=== PATIENT | male | born 1955 | race Caucasian/White ===

== ENCOUNTER 2018-03-31 17:32 | Inpatient (IN) | payer MEDICARE, BC ==
[2018-03-31 18:41] LABS: #Eosinphils 0.4 thou/uL (0.0-0.7); #Lymphocytes 0.9 thou/uL (1.20-3.40); #Monocytes 0.7 thou/uL (0.11-0.59); #Neutrophils 4.6 thou/uL (1.40-6.50); %Basophils 0.7 % (0.0-1.0); %Eosinophils 5.4 % (0.0-10.0); %Lymphocytes 14.1 % (21.0-51.0); %Monocytes 9.9 % (0.0-10.0); %Neutrophils 69.9 % (42.0-75.0); Hemoglobin 7.2 g/dL (14.0-18.0); Mean Corpuscular HGB CONC 32.5 g/dL (32.0-36.0); Mean Corpuscular Hemoglobin 28.4 pg (27.0-31.0); Mean Corpuscular Volume 87.6 fL (78.0-98.0); Mean Platelet Volume 6.9 fL (7.4-10.4); Platelet Count 190 thou/uL (130-400); RBC Distribution Width 14.1 % (11.5-14.5); Red Blood Cell (RBC) Count 2.52 mill/uL (4.70-6.10); White Blood Cell (WBC) Count 6.5 thou/uL (4.8-10.8)
[2018-03-31 18:58] LABS: ALT (SGPT) 25 U/L (8-55); AST (SGOT) 20 U/L (5-34); Albumin 3.3 g/dL (3.4-4.8); Alkaline Phosphatase 119 U/L (40-150); Anion Gap 17 mmol/L (10-20); BUN (Urea Nitrogen) 47 mg/dL (8.4-25.7); Bilirubin, Total 0.5 mg/dL (0.2-1.2); Calc. Creatinine Clearance 0 mL/min (70-130); Calcium 8.6 mg/dL (7.8-10.44); Carbon Dioxide 25 mmol/L (23-31); Chloride 98 mmol/L (98-107); Estimated GFR-MDRD 12; Globulin 3.5 g/dL (2.4-3.5); Glucose 171 mg/dL (80-115); Potassium 4.1 mmol/L (3.5-5.1); Protein, Total 6.8 g/dL (5.8-8.1); Sodium 136 mmol/L (136-145)
--- NOTE | 2018-03-31 19:14 | RAD ---
RIGHT GREAT TOE RADIOGRAPHS THREE VIEWS: 03/31/18 PROVIDED CLINICAL HISTORY: Great toe infection. FINDINGS: There is evidence for a lytic process involving the great toe distal phalanx distally. There is surro unding soft tissue swelling. Vascular calcifications are seen. The great toe is held in flexion at th e IP joint. The MTP joint space appears preserved. IMPRESSION: Lytic changes involving the great toe distal phalanx compatible with osteomyelitis in the setting of infection. POS: LULU
[2018-03-31] MEDS ORDERED: CEFAZOLIN 1 GM VIAL ONE ×2 (19:52→20:20)
[2018-03-31] MEDS ORDERED: traMADol HCl 50 MG TAB PO PRN (21:08)
[2018-03-31] MEDS ORDERED: Ondansetron ODT 4 MG TAB PO PRN (21:08)
[2018-03-31] MEDS ORDERED: Acetaminophen 325 MG TAB PO PRN (21:08)
--- NOTE | 2018-03-31 21:35 | PDOC.FPRHP ---
- History of Present Illness Chief Complaint: Osteomyelytis History of Present Illness: This is a 62 yo male with a pmh of CAD s/p cabg 2009, DM2, HTN, ESRD on HD, CHF , and parkinsons who presents to the ED from his admitting manager's office. He states that his admitting manager, Dr. Brown, wanted him admitted due to his osteomyelitis confirmed by xray in his right first toe. He states that this wound resulted from him dropping an object on his toe. He states that they have been treating this wound for a few weeks. He states that he is having mild pain with is toe currently. He denies fever or chills. He does reports increased swelling and redness over his toe and distal foot. Pt has had the toes on his left foot amputated. The ED consult Dr. Alejo, pt's supervisor vendor quality ED Course: vanc, ancef - Allergies/Adverse Reactions Allergies Allergy/AdvReac Type Severity Reaction Status Date / Time acetaminophen [From Percocet] Allergy Verified 03/31/18 22:10 codeine Allergy Verified 03/31/18 22:10 oxycodone Allergy Verified 03/31/18 22:10 - Home Medications Medication Instructions Recorded Confirmed Type ALPRAZolam [Xanax] 1 mg PO DAILY 03/31/18 03/31/18 History Amiodarone [Cordarone] 200 mg PO DAILY 03/31/18 03/31/18 History Aspirin [Adult Aspirin] 81 mg PO DAILY 03/31/18 03/31/18 History Atorvastatin Calcium 80 mg PO DAILY 03/31/18 03/31/18 History Carvedilol 25 mg PO BID 03/31/18 03/31/18 History Furosemide [Lasix] 80 mg PO Q2DAYS 03/31/18 03/31/18 History Isosorbide Dinitrate 30 mg PO DAILY 03/31/18 03/31/18 History glipiZIDE [Glipizide] 10 mg PO QPM-WM 03/31/18 03/31/18 History - History PMHx: DM2, ESRD on HD MWF, CAD s/p CABG, CHF unknown type, parkinsons, Neck fracture in 2016, anxiety PSHx: CABG, Left HD fistula, pacemaker FHx: noncontributory Social: Denies 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 denies: rhinorrhea Respiratory: denies: cough, congestion, shortness of breath Cardiovascular: denies: chest pain, palpitation Gastrointestinal: reports: constipation (occasionally). denies: nausea, vomiting, diarrhea Skin: reports: other (see HPI) Musculoskeletal: reports: pain (neck pain) Neurological: denies: numbness, syncope Psychological: reports: anxiety. denies: depression - Vital signs BP: 168/82 HR: 72 RR: 18 Tmax: 97.9 Pox: 95% on ra Wt: 86 kg - Physical Exam Constitutional: NAD, awake, alert and oriented, well developed HEENT: normocephalic and atraumatic, PERRLA, EOMI, MMM Neck: trachea midline, no JVD Chest: no-tender to palpation Heart: RRR, normal S1/S2, pulses present, other (2+ pitting edema to midshin bilaterally) Lungs: CTAB, no respiratory distress, good air movement Abdomen: soft, non-tender, bowel sounds present, no masses/distention Musculoskeletal: normal structure, ROM grossly normal Neurological: CN II-XII intact Skin: other (2x3 cm lesion on the plantar surface of right big toe. Erythematous with spread to distal midfoot.) Heme/Lymphatic: no unusual bruising or bleeding Psychiatric: normal mood and affect, good judgment and insight FMR H&P: Results - Labs Result Diagrams: 03/31/18 18:31 03/31/18 18:31 Lab results: WBC 6.5 thou/uL (4.8-10.8) 03/31/18 18:31 Hgb 7.2 g/dL (14.0-18.0) L 03/31/18 18:31 Hct 22.0 % (42.0-52.0) L 03/31/18 18:31 MCV 87.6 fL (78.0-98.0) 03/31/18 18:31 Plt Count 190 thou/uL (130-400) 03/31/18 18:31 Neutrophils % 69.9 % (42.0-75.0) 03/31/18 18:31 Sodium 136 mmol/L (136-145) 03/31/18 18:31 Potassium 4.1 mmol/L (3.5-5.1) 03/31/18 18:31 Chloride 98 mmol/L (98-107) 03/31/18 18:31 Carbon Dioxide 25 mmol/L (23-31) 03/31/18 18:31 BUN 47 mg/dL (8.4-25.7) H 03/31/18 18:31 Creatinine 5.03 mg/dL (0.7-1.3) H 03/31/18 18:31 Glucose 171 mg/dL (80-115) H 03/31/18 18:31 Lactic Acid 0.8 mmol/L (0.5-2.2) 03/31/18 18:31 Calcium 8.6 mg/dL (7.8-10.44) 03/31/18 18:31 Total Bilirubin 0.5 mg/dL (0.2-1.2) 03/31/18 18:31 AST 20 U/L (5-34) 03/31/18 18:31 ALT 25 U/L (8-55) 03/31/18 18:31 Alkaline Phosphatase 119 U/L (40-150) 03/31/18 18:31 B-Natriuretic Peptide 2119.3 pg/mL (0-100) H 03/31/18 18:31 Serum Total Protein 6.8 g/dL (5.8-8.1) 03/31/18 18:31 Albumin 3.3 g/dL (3.4-4.8) L 03/31/18 18:31 - Radiology Interpretation Other Status: report reviewed by me (2View xray rt toes, lytic changes involving the great toe distal phalanx compatible with osteomyelitis in the setting of infection) FMR H&P: A/P - Problem List (1) Osteomyelitis of toe of right foot Current Visit: Yes Status: Acute Code(s): M86.9 - OSTEOMYELITIS, UNSPECIFIED (2) ESRD on dialysis Current Visit: Yes Status: Acute Code(s): N18.6 - END STAGE RENAL DISEASE; Z99.2 - DEPENDENCE ON RENAL DIALYSIS (3) Diabetes mellitus type 2 in nonobese Current Visit: Yes Status: Acute Code(s): E11.9 - TYPE 2 DIABETES MELLITUS WITHOUT COMPLICATIONS (4) CAD (coronary artery disease) Current Visit: Yes Status: Acute Code(s): I25.10 - ATHSCL HEART DISEASE OF [place] CORONARY ARTERY W/O ANG PCTRS (5) HTN (hypertension) Current Visit: Yes Status: Acute Code(s): I10 - ESSENTIAL (PRIMARY) HYPERTENSION (6) Parkinson disease Current Visit: Yes Status: Acute Code(s): G20 - PARKINSON'S DISEASE (7) CHF (congestive heart failure) Current Visit: Yes Status: Acute Code(s): I50.9 - HEART FAILURE, UNSPECIFIED - Plan This is a 62 yo male with a pmh of CAD s/p cabg 2009, DM2, HTN, ESRD on HD, CHF , and parkinsons Osteomyelitis -Admit to medical -Consult podiatry and wound care in the morning -Vanc and ancef (03/31) ESRD -Dr. Alejo consulted from ED -Vanc given in ED, will continue in dialysis Normocytic anemia -Hgb 7.2, consider transfusing depending on plan and trend DM2 -Continue home meds -ACHS accuchecks, SSI HTN -Continue home meds CAD -Continue home meds CHF -Continue home meds parkinsons -continue home meds anxiety -Continue home meds Code: Full Prophylaxis: heparin Family: Girlfriend at bedside, plan discussed with her Disposition: Pending tx plan and podiatry recommendations FMR H&P: Upper Level - Pertinent history 62 yo male was sent to ER from his admitting manager with concerns for osteomyelitis of his right 1st toe. He has had amputation of his left foot toes. Reports he has been having issues with is toe and they have been trying to manage it with wound care. Denies CP, SOB, cough, N/V/abdominal pain. He reports he recently moved to from the [facility] for a work opportunity with his girlfriend. Patient is also on HD MWF. Information Technology Officer is Dr. Alejo. History is also significant for 4v CABG around 2009, HTN, CHF, DMII. In ER patient received vancomycin and cefazolin. - Pertinent findings Rt 1st toe xray: lytic changes of distal phalanx consistent with osteomyelitis WBC: 6.5 Neutrophils: 69.9 H/H: 7.2/22.0 MCV: 87.6 Plt: 190 Cr: 5.03 Glucose: 171 BNP: 2119 GEN: NAD, soft neck brace around neck CARD: RRR, 2/6 systolic murmur PULM: CTAB EXT: left foot transmetatarsal amputation; right distal toe has approx. 5cm x 3cm open lesion with pink borders Grade 1 NEURO: endorse sensation in feet and is able to determine position of toes on right foot - Plan Date/Time: 03/31/182133 IBenito DO, have evaluated this patient and agree with findings/plan as outlined by r d internship resident. Pertinent changes/additions are listed here. #suspected osteomyelitis -consult podiatry team in AM -continue with cefazolin -wound care -PT/OT #ESRD on HD -Dr. Alejo consulted from the ER -plan to dialyze today as he is MWF #DMII -continue home medications #CHF -get records from previous providers and consider ECHO based on elevated BNP #normocytic anemia -unsure of his baseline, but significantly low -asymptomatic -as he likely will be going back for surgery, will likely need to transfuse #HTN -continue home medications Addendum - Attending - Attending Attestation Date/Time: 03/31/182135 I personally evaluated the patient and discussed the management with Dr. Ross /Khushi. I agree with the History, Examination, Assessment and Plan documented above with any addition or exceptions noted below. Patient here with 4 weeks of worsening infection in R great toe that began after injury to the digit. Has history of PVD and CAD, as well as ESRD on HD. Has history of L foot digit amputations in the past for infection. Has been seeing Podiatry in outpatient setting for abx therapy with no improvement in his toe. Sent by admitting manager today for parenteral abx. XR obtained by ER shows osteomyelitis and the toe is gangrenous. He will be admitted for IV abx with Vanc and Ancef, though consider switching to Zosyn for possible Pseudomonas coverage. Will consult wound care and Podiatry in the AM for likely debridement verus amputation. No current systemic evidence of infection. Has likely chronic anemia 2/2 ESRD but if the need for surgery arises, he may need transfusion as he is near 7 in setting of CAD. Other labs consistent with ESRD status.
[2018-03-31 21:47] VITALS: BMI 27.2
[2018-03-31] MEDS ORDERED: Furosemide 80 MG TAB PO SCH (23:45)
[2018-04-01] MEDS ORDERED: ALPRAZolam 1 MG TAB PO SCH ×2 (00:45→09:00)
--- NOTE | 2018-04-01 06:05 | PDOC.FM ---
- Subjective Subjective: NAEO. Patient states he slept well last night. Denies any fever/chills, N/V or significant foot pain. Says it feels ok as long as he is not walking on it. - Objective MAR Reviewed: Yes Vital Signs & Weight: Vital Signs (12 hours) Temp Pulse Resp BP Pulse Ox 04/01/18 04:01 98.0 F 63 18 169/74 H 95 04/01/18 00:27 98.1 F 62 16 151/71 H 97 03/31/18 21:29 97.9 F 65 16 181/77 H 92 L Weight Weight 86.183 kg Result Diagrams: 04/03/18 05:58 04/03/18 05:58 Phys Exam - Physical Examination Constitutional: NAD HEENT: moist MMs, sclera anicteric Neck: supple, full ROM Respiratory: no wheezing, no rales, no rhonchi, clear to auscultation bilateral Cardiovascular: RRR, no significant murmur Musculoskeletal: edema present (in right LE) Neurological: non-focal, moves all 4 limbs Psychiatric: normal affect, A&O x 3 Deviation from normal: ~3cm diameter eschar over tip of base of R great toe w/ 2nd smaller sore on -: medial aspect of toe; surrounding erythema and edema present up to midshin Dx/Plan (1) CAD (coronary artery disease) Code(s): I25.10 - ATHSCL HEART DISEASE OF [place] CORONARY ARTERY W/O ANG PCTRS Status: Acute (2) Diabetes mellitus type 2 in nonobese Code(s): E11.9 - TYPE 2 DIABETES MELLITUS WITHOUT COMPLICATIONS Status: Acute (3) ESRD on dialysis Code(s): N18.6 - END STAGE RENAL DISEASE; Z99.2 - DEPENDENCE ON RENAL DIALYSIS Status: Acute (4) HTN (hypertension) Code(s): I10 - ESSENTIAL (PRIMARY) HYPERTENSION Status: Acute (5) Osteomyelitis of toe of right foot Code(s): M86.9 - OSTEOMYELITIS, UNSPECIFIED Status: Acute (6) Parkinson disease Code(s): G20 - PARKINSON'S DISEASE Status: Acute - Plan Plan: This is a 62 yo male with a pmh significant for CAD s/p 4v cabg, DM2, & ESRD on HD who was instructed by his bakery sales clerk to go to the hospital after being diagnosed with osteomyelitis in his right great toe on x-ray. Osteomyelitis - Will consult podiatry and wound care today. Appreciate recs. - Will keep NPO until patient can be seen by podiatry in anticipation of possible surgery today. - Will continue IV Vanc and ancef as well. ESRD - Aware, patient missed HD yesterday but Dr. Alejo, the patient's movie producer, was consulted from ED. Appreciate recs. - Patient on a MWF HD schedule but missed yesterday as he came to the hospital instead. Will likely need HD today but will defer to Dr. Alejo for this. Normocytic anemia - Hgb 7.2 on admission. Patient asymptomatic and HD stable. Repeat CBC pending for today. - Will transfuse PRN especially if patient is to undergo surgery. DM2 - Aware, will continue home meds. - ACHS accuchecks, SSI HTN -Continue home meds CAD -Continue home meds CHF -Continue home meds Parkinsons -Continue home meds Anxiety -Continue home meds Code: Full DVT Prophylaxis: heparin Abx: Vancomycin and Ancef IVFs: none Disposition: Pending tx plan and podiatry recommendations. Addendum - Attending - Attending Attestation Date/Time: 04/01/182155 I personally evaluated the patient and discussed the management with Dr. Hill and Dr. Puri I agree with the History, Examination, Assessment and Plan documented above with any addition or exceptions noted below. 62 yo male with multiple medical conditions admitted for failed outpatient treatment of osteomyelitis HD#1 Patient doing well overnight. No complications. Tolerating IV antibiotics well. Podiatry to evaluate later today. 1. osteomyelitis: Failed outpatient treatment. Rule out PVD. ABIs pending. Consider imaging as needed. Per podiatry would like CV surg consult. Adjust home meds as indicated. Chacha
[2018-04-01 09:00] LABS: #Basophils 0.1 thou/uL (0.0-0.2); #Eosinphils 0.3 thou/uL (0.0-0.7); #Lymphocytes 0.8 thou/uL (1.20-3.40); #Monocytes 0.6 thou/uL (0.11-0.59); #Neutrophils 4.7 thou/uL (1.40-6.50); %Eosinophils 5.1 % (0.0-10.0); %Lymphocytes 11.7 % (21.0-51.0); %Monocytes 9.2 % (0.0-10.0); %Neutrophils 73.1 % (42.0-75.0); Hemoglobin 7.1 g/dL (14.0-18.0); Mean Corpuscular HGB CONC 32.4 g/dL (32.0-36.0); Mean Corpuscular Hemoglobin 28.8 pg (27.0-31.0); Mean Platelet Volume 6.8 fL (7.4-10.4); Platelet Count 201 thou/uL (130-400); Red Blood Cell (RBC) Count 2.46 mill/uL (4.70-6.10); White Blood Cell (WBC) Count 6.4 thou/uL (4.8-10.8)
[2018-04-01] MEDS ORDERED: HOLD VANCOMYCIN FOR LEVEL >20 FS SCH (09:00)
[2018-04-01] MEDS ORDERED: Vancomycin HCl 1.25 GM in Sodium Chloride 0.9% 250 ML 250 ML IVPB SCH (09:00)
[2018-04-01] MEDS ORDERED: Vancomycin HCl 1 GM in Premix Bag 1 BAG IVPB SCH (09:00)
[2018-04-01] MEDS ORDERED: Vancomycin HCl 500 MG in Sodium Chloride 0.9% 100 ML IVPB SCH (09:00)
[2018-04-01] MEDS ORDERED: Vancomycin HCl 750 MG in Sodium Chloride 0.9% 250 ML 250 ML IVPB SCH (09:00)
[2018-04-01 09:12] LABS: Vancomycin, Random 11.3 ug/mL (See Comment)
[2018-04-01 09:14] LABS: Anion Gap 15 mmol/L (10-20); BUN (Urea Nitrogen) 48 mg/dL (8.4-25.7); Calc. Creatinine Clearance 18 mL/min (70-130); Calcium 8.6 mg/dL (7.8-10.44); Carbon Dioxide 29 mmol/L (23-31); Chloride 100 mmol/L (98-107); Estimated GFR-MDRD 11; Glucose 115 mg/dL (80-115); Potassium 3.8 mmol/L (3.5-5.1); Sodium 140 mmol/L (136-145)
[2018-04-01] MEDS ORDERED: Epoetin (ESRD) 20,000 UNITS/ML SC SCH (09:30)
[2018-04-01] MEDS: Amiodarone 200 MG TAB PO SCH ×2 (09:40→19:27)
[2018-04-01] MEDS: Heparin 5,000 UNITS/ML VIAL SC SCH ×3 (09:55→21:34)
[2018-04-01] MEDS ORDERED: Epoetin (ESRD) 10,000 UNITS/ML VIAL SC SCH (10:00)
--- NOTE | 2018-04-01 12:40 | CON ---
DATE OF CONSULTATION: HISTORY OF PRESENT ILLNESS: Mr. Cosme is a 62-year-old white male with known history of ESRD from diabetic nephropathy and admitted due to a foot infection. He had an x-ray of right first toe, which suggested osteomyelitis. He has received IV Ancef and IV vancomycin. We are now being consulted for his maintenance hemodialysis. He missed his dialysis yesterday and for this reason, I have scheduled him for his regular 3-1/2-hour hemodialysis today. REVIEW OF SYSTEMS: Positive for right foot pain. No nausea. No vomiting. Positive for chronic tremors. No diarrhea. No constipation. No productive cough. No fever or chills. No dysuria. No shortness of breath. No chest pain. No headache. Positive for occasional joint pains. HOME MEDICATIONS: Include the following; 1. Xanax 1 mg daily. 2. Amiodarone 200 mg p.o. b.i.d. 3. Aspirin 81 mg tablet daily. 4. Atorvastatin 80 mg at bedtime. 5. Carvedilol 25 mg p.o. b.i.d. 6. Furosemide 80 mg every 2 days. 7. Isordil 30 mg once a day. 8. Glipizide 10 mg q.p.m. PAST MEDICAL HISTORY: 1. ESRD from diabetic nephropathy. 2. Parkinson disease. 3. Coronary artery disease. 4. DJD. 5. Type 2 diabetes mellitus. 6. Hyperlipidemia. 7. Peripheral vascular disease ? PAST SURGICAL HISTORY: 1. Status post AV fistula placement. 2. Status post cuffed dialysis catheter placement. 3. Status post colonoscopy. 4. Status post cardiac cath. 5. Status post CABG. 6. Status post right knee replacement. 7. Status post cervical neck surgery. ALLERGIES: PERCOCET, CODEINE, AND OXYCODONE. TRAUMA: Status post neck injury. IMMUNIZATION: Up-to-date. HOSPITALIZATIONS: Please see past medical history. FAMILY HISTORY: No family history of ESRD. SOCIAL HISTORY: The patient is originally from [place], but lives in [place]. He has a live-in partner. No children. 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 Education, some college courses. No history of smoking. Occasional alcohol. No IV drug abuse. No status post blood transfusion. PHYSICAL EXAMINATION: VITAL SIGNS: Blood pressure 134/69, heart rate 59, respiratory rate 20, temperature 97.8, and pulse ox 92%. GENERAL: Awake, alert, sitting comfortable, not in distress. SKIN: Adequate turgor. HEENT: He has pinkish conjunctivae. Anicteric sclerae. NECK: No neck mass. No carotid bruits. No JVD. CHEST: No deformities. LUNGS: Clear breath sounds. No wheezing. No crackles. HEART: Normal sinus rhythm. No murmur. No gallops. No rubs. ABDOMEN: Globular, soft, and nontender. No masses. EXTREMITIES: No edema. No deformities. He does have a wound infection on the right great toe. LABORATORY DATA: Laboratories show white count 6.4 and hemoglobin 7.1. Sodium 140, potassium 2.8, chloride 100, carbon dioxide 29, BUN 48, creatinine 5.15, and calcium 8.6. BNP 2119. DIAGNOSTIC DATA: X-rays of the toe, lytic changes involving the great toe distal phalanx compatible with osteomyelitis - right. ASSESSMENT AND PLAN: 1. Anemia. Continue Epogen at 10,000 units subcu q.week. We will give 1 unit packed RBC with dialysis today. 2. End-stage renal disease, stable. We will continue current hemodialysis regimen. Review of Kt/V suggest he has adequately dialyzed with current dialysis regimen. 3. Right toe infection - osteomyelitis - continue IV antibiotics. 4. Agree with current management. Job ID: [id number]
[2018-04-01] MEDS: Isosorbide Dinitrate 20 MG TAB PO SCH (19:25)
[2018-04-01] MEDS: Carvedilol 25 MG TAB PO SCH ×2 (19:26→21:34)
[2018-04-01] MEDS: Aspirin 81 mg Enteric Coated Tablet PO SCH (19:27)
[2018-04-01] MEDS: Furosemide 80 MG TAB PO SCH (19:28)
[2018-04-01] MEDS: glipiZIDE 10 MG TAB PO SCH (19:31)
--- NOTE | 2018-04-01 21:24 | CON ---
DATE OF CONSULTATION: 04/01/2018 CHIEF COMPLAINT: Right great toe pain. HISTORY OF PRESENT ILLNESS: The patient is a 62-year-old diabetic man, who recently has moved to the [facility]. Earlier this year, he had gangrenous changes develop in his left great toe and as he describes it after amputation of that toe, the adjoining toe became ischemic and then the next and ultimately he underwent a transmetatarsal amputation that healed without incident. In the course of his move here, he dropped something heavy on his right foot and he has developed an ulceration on the tip of his right great toe that is about 1 x 2 cm or perhaps even larger. X-rays suggest osteomyelitis, although I suppose this could represent a crush injury from having dropped something on the toe. He was seen by local respiratory therapy assistant, who has been treating him with antibiotics, but opted to refer him to the hospital for possible vascular evaluation prior to committing to amputation or other treatment modalities. PAST MEDICAL HISTORY: Significant for end-stage renal disease, diabetes, coronary artery disease, status post coronary artery bypass grafting, and presumed peripheral vascular disease. HOME MEDICATIONS: 1. Xanax. 2. Amiodarone. 3. Baby aspirin. 4. Lipitor. 5. Coreg. 6. Lasix. 7. Isordil. 8. Glipizide. ALLERGIES: THE PATIENT REPORTS DYSPHORIA AND NAUSEA WITH CODEINE AND CODEINE-LIKE NARCOTICS. HE IS ABLE TO TAKE TRAMADOL WITH REASONABLE RELIEF AND NO UNPLEASANT SIDE AFFECTS. SOCIAL HISTORY: He does not smoke. REVIEW OF SYSTEMS: Positive for some neck pain. Negative for chest pain. PHYSICAL EXAMINATION: GENERAL: He is wearing a soft cervical collar. He is in no distress. VITAL SIGNS: Heart rate 76, blood pressure 162/70, temperature is 98.4, and T-max this hospitalization overnight is 98.4. EXTREMITIES: His left foot has a well-healed transmetatarsal amputation with otherwise healthy-appearing skin. His right foot is mildly edematous, not able to clearly palpate dorsalis pedis or posterior tibial pulses, although I thought briefly I felt the posterior tibial pulse. Most of the tip of his right great toe is affected by excoriation with skin loss, but reasonably good granulation tissue in the open wound. There is no particular drainage. I am not seeing sinus tracts. Capillary refill in all the foot is fairly brisk. He has an easily palpable popliteal pulse. He does not remember from which leg vein was taken for his coronary bypass procedure a few years ago. I was not able to identify scars on either leg. He has an AV fistula in his left forearm. DIAGNOSTIC DATA: His x-ray of his foot shows vascular calcifications and some lytic lesion interpreted as possible osteomyelitis in the tip of the great toe. In my conversation with the physician requesting the consult that an HAZEL on that side was 0.9, although I was not able to find that documentation and did not repeat it myself. LABORATORY EXAM: Showed a white count of 6.5, hemoglobin 7.2, hematocrit 22.0, platelets 190,000, and MCV of 87.6. Electrolytes were normal. Glucose 171 and creatinine 5.03. LFTs were normal. Albumin is 3.3. IMPRESSION AND RECOMMENDATIONS: I think that there is a reasonable chance that even if he requires amputation as he probably does, if he has osteo of that phalanx, that it will probably heal. While an HAZEL of 0.9 sounds encouraging given his diabetes, his renal failure, and the documented vascular calcifications of this foot, that may be spuriously high, but he at least has palpable pulses at the popliteal level and I am somewhat skeptical that there is much of anything that I have to offer that will improve upon that much. He has brisk capillary refill in the foot and I think that it is worth trying either conservative management or primary amputation rather than pursuing arteriography and possible revascularization. I will defer that to his respiratory therapy assistant. Job ID: [id number]
[2018-04-01] MEDS: Atorvastatin Calcium 40 MG TAB PO SCH (21:34)
[2018-04-01] MEDS: ALPRAZolam 1 MG TAB PO SCH (21:34)
--- NOTE | 2018-04-02 04:02 | HP ---
LOCATION: [facility] in [place]. CHIEF COMPLAINT: Osteomyelitis, right hallux. HISTORY OF PRESENT ILLNESS: The patient is a 62-year-old male, whom I have been treating in the clinic for approximately the last month for an ulceration of the right hallux. The patient notes that he has recently moved to [facility] from the [facility]. Prior to moving, within the last year, he had an ulceration with gangrene to the left foot, which led to an amputation followed by a transmetatarsal amputation. The patient notes that he had a good relationship with a senior regulatory affairs specialist in [place] and notes that he has had open heart surgery as well as revascularization procedure, but cannot remember exactly where those procedures were done, either leg, etc. The patient notes that he recently moved here to live close to his girlfriend. Today, the patient denies nausea, vomiting, fevers, or chills; however, he has noted increased swelling and redness in his right foot, especially within the last few days. The patient had been treated outpatient with Betadine wet-to-dry, and attempts were made to get him revascularized on an outpatient setting as well as getting lab work done, which also proved to be unsuccessful. It was determined that admitting the patient at this time would be appropriate to help get a speedy resolution of this infection. ALLERGIES: ACETAMINOPHEN, CODEINE, AND OXYCODONE. MEDICATIONS: Per chart. PAST MEDICAL HISTORY: Diabetes; end-stage renal disease, on hemodialysis; status post coronary artery bypass graft; Parkinson disease; neck fracture in 2016, and anxiety. PAST SURGICAL HISTORY: Coronary artery bypass graft, left hemodialysis fistula, pacemaker, and transmetatarsal amputation of the left foot. FAMILY HISTORY: Noncontributory. SOCIAL HISTORY: Denies smoking, alcohol, or drug use. REVIEW OF SYSTEMS: CONSTITUTIONAL: Denies fever or chills at this time. CARDIOVASCULAR: Denies chest pain or palpitations at this time. SKIN: The patient does report an ulceration on his right hallux. MUSCULOSKELETAL: Denies pain other than his neck. PHYSICAL EXAMINATION: VITAL SIGNS: Temperature 98.4, pulse 76, respiratory rate 18, O2 saturation is 91%, and blood pressure 162/70. EXTREMITIES: Sensation is diminished at the level of the mid foot on the right foot. Pulses are not palpable, DP and PT bilaterally; however, with the hand-held Doppler device, audible signals were appreciated at the posterior tib, dorsalis pedis, and peroneal artery of the right foot. CFT is less than 3 seconds. MUSCULOSKELETAL: Transmetatarsal amputation on the left foot noted. Hammertoes on the right foot. No pain with palpation of the right hallux. DERM: There is an ulceration at the distal plantar tip of the patient's right hallux that measures approximately 3 cm x 4 cm. This has a central fibrotic plug with a small hole but does probe all the way to the bone. There is serous drainage coming from the bone. There is also cellulitis of the toe noted with swelling and dorsal ascending cellulitis on the patient's right foot to about the mid foot level. No other exposed tendon. No purulence seen at this time. DIAGNOSTIC DATA: X-rays; radiographs show a fractured distal phalanx of the hallux consistent with osteomyelitis in the setting of exposed bone. Of note, x-rays were taken approximately two weeks ago in my office and this bone was not fractured at that time. This was noted to be initially caused by the patient dropping something on his foot over a month ago. LABORATORY DATA: White blood cell count 6.4, hemoglobin 7.1, hematocrit 21.9, and platelet count 201. ASSESSMENT: Osteomyelitis with diabetic foot infection, right hallux. PLAN: At this time, plan on taking the patient to the operating theater tomorrow for amputation of the right hallux. Of note, the patient was visited by Vascular, who did evaluate him and noted that the patient appeared to be in as a good place as he could be to heal amputation at this time. No further procedures at this time were expected to increase his blood flow much more than what it already is. We will order some additional lab work including ESR and CRP tonight. Plan on taking the patient for an amputation tomorrow afternoon. We will make the patient n.p.o. starting at midnight tonight. If you have any questions, please do not hesitate to contact me. We will continue to monitor the patient while inhouse. Job ID: [id number]
[2018-04-02] MEDS ORDERED: Dextrose 50% Abboject 50 ML SYRINGE ONE (05:00)
--- NOTE | 2018-04-02 07:05 | PDOC.FM ---
- Subjective Subjective: NAEO. Patient reports being a little restless overnight. Says his foot pain is currently 7/10 in severity. - Objective MAR Reviewed: Yes Vital Signs & Weight: Vital Signs (12 hours) Temp Pulse Resp BP Pulse Ox 04/02/18 04:00 97.7 F 60 18 133/61 98 04/01/18 23:56 98.6 F 67 18 130/68 95 04/01/18 20:00 99.9 F H 78 16 179/69 H 92 L Weight Admit Weight 86.183 kg Weight 86.183 kg I&O: 04/01/18 04/02/18 04/03/18 06:59 06:59 06:59 Intake Total 800 Output Total 3000 Balance -2200 Result Diagrams: 04/03/18 05:58 04/03/18 05:58 Phys Exam - Physical Examination Constitutional: NAD HEENT: moist MMs Neck: supple, full ROM Respiratory: no wheezing, no rhonchi Cardiovascular: RRR, no significant murmur Gastrointestinal: positive bowel sounds Musculoskeletal: edema present (nonpitting in RLE 2/2 infection) Neurological: non-focal, moves all 4 limbs Psychiatric: normal affect, A&O x 3 Skin: no rash Deviation from normal: R foot bandaged but slightly improved RLE erythema still extending to just -: below the knee Dx/Plan (1) CAD (coronary artery disease) Code(s): I25.10 - ATHSCL HEART DISEASE OF [place] CORONARY ARTERY W/O ANG PCTRS Status: Acute (2) Diabetes mellitus type 2 in nonobese Code(s): E11.9 - TYPE 2 DIABETES MELLITUS WITHOUT COMPLICATIONS Status: Acute (3) ESRD on dialysis Code(s): N18.6 - END STAGE RENAL DISEASE; Z99.2 - DEPENDENCE ON RENAL DIALYSIS Status: Acute (4) HTN (hypertension) Code(s): I10 - ESSENTIAL (PRIMARY) HYPERTENSION Status: Acute (5) Osteomyelitis of toe of right foot Code(s): M86.9 - OSTEOMYELITIS, UNSPECIFIED Status: Acute (6) Parkinson disease Code(s): G20 - PARKINSON'S DISEASE Status: Acute - Plan Plan: This is a 62 yo male with a pmh significant for CAD s/p 4v cabg, DM2, & ESRD on HD who was instructed by his jointer operator to go to the hospital after being diagnosed with osteomyelitis in his right great toe on x-ray. Osteomyelitis - Confirmed on x-ray. - CV surgery did not recommend any vascular intervention at this time. Podiatry to take patient back to OR this morning for amputation of R great toe. - Will keep NPO for surgery today. - Will continue IV Vanc and ancef and consider switching to flagyl following surgery per recs of RHETT, Dr. Marcano. 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 Alejo is on board, appreciate recs. - Patient was dialyzed yesterday as he missed dialysis on Thursday. - Will defer to Dr. Alejo for next HD session. Normocytic anemia - Hgb 7.2 on admission & down to 7.1 yesterday. Patient is s/p 1 unit of PRBCs in HD yesterday. Repeat CBC pending for this AM. - Will continue EPO per nephro recs. - Will continue to monitor w/ QD CBCs. Hypokalemia - K down to 3.2 this AM. Will allow electrolyte replacement in HD PRN. DM2 - Aware, will continue home meds. - ACHS accuchecks, SSI HTN -Continue home meds CAD -Continue home meds CHF -Continue home meds Parkinsons -Continue home meds Anxiety -Continue home meds Code: Full DVT Prophylaxis: heparin Abx: Vancomycin and Ancef IVFs: none Disposition: Amputation today. Addendum - Attending - Attending Attestation Date/Time: 04/02/181 I personally evaluated the patient and discussed the management with Dr. Hill and Dr. Puri I agree with the History, Examination, Assessment and Plan documented above with any addition or exceptions noted below. 62 yo male with multiple medical conditions admitted for failed outpatient treatment of osteomyelitis HD#2 Awaiting surgery this AM. 1. osteomyelitis: Failed outpatient treatment. No need for vascular intervention prior to amputation. CV surg following. Podiatry following. Will continue IV antibiotics. Adjust home meds as indicated. Chacha
[2018-04-02] MEDS ORDERED: Fentanyl 100 MCG/2 ML VIAL SLOW IVP PRN (08:00)
[2018-04-02] MEDS ORDERED: PROPOFOL 200 MG/20 ML VIAL ONE (08:24)
--- NOTE | 2018-04-02 08:51 | PRG ---
DATE OF SERVICE: 04/02/2018 SUBJECTIVE: Mr. Cosme is a 62-year-old white male with ESRD - currently on a maintenance hemodialysis and was admitted for a right hallux osteomyelitis. He is currently on IV antibiotics. We are following this patient for his maintenance hemodialysis. He underwent hemodialysis yesterday without any difficulty. My plan is to resume back his regular Thursday, Thursday, Thursday dialysis today. No complaints of chest pain or shortness of breath. OBJECTIVE: VITAL SIGNS: Blood pressure 133/61, heart rate 60, respiratory rate 18, temperature 97.7, and pulse ox 98%. GENERAL: Noted to be awake, alert, comfortable, not in distress. SKIN: Adequate turgor. HEENT: He has a slightly pale conjunctivae. Anicteric sclerae. NECK: No neck mass. No carotid bruits. No JVD. CHEST: No deformities. LUNGS: Clear breath sounds. HEART: Normal sinus rhythm. No murmurs. No gallops. No rubs. ABDOMEN: Globular, soft, nontender. No masses. EXTREMITIES: No edema. Right foot dressing. MEDICATIONS: Medications of April 02, 2018, were reviewed. LABORATORY DATA: Laboratories of April 01, 2018; white count 6.4, hemoglobin 7.1. Sodium 140, potassium 3.8, chloride 100, carbon dioxide 29, BUN 48, creatinine 5.15, and calcium 8.6. ASSESSMENT AND PLAN: 1. Right toe osteomyelitis - currently the patient on antibiotics. 2. Possibility of amputation? 3. End-stage renal disease, stable. We will continue current Thursday, Thursday, Thursday dialysis, tolerating said treatment. Fluid removal as tolerated. 4. Anemia. Received 1 unit of packed RBC with dialysis yesterday. Resume Epogen at 10,000 units subcu every week. The plan is to recheck another basic metabolic, CBC today in a.m. Overall, agree with current management. Job ID: [id number]
[2018-04-02 09:30] LABS: Vancomycin, Random 10.1 ug/mL (See Comment)
[2018-04-02 09:32] LABS: Anion Gap 11 mmol/L (10-20); BUN (Urea Nitrogen) 27 mg/dL (8.4-25.7); Calc. Creatinine Clearance 29 mL/min (70-130); Calcium 8.5 mg/dL (7.8-10.44); Carbon Dioxide 30 mmol/L (23-31); Chloride 101 mmol/L (98-107); Estimated GFR-MDRD 20; Glucose 94 mg/dL (80-115); Potassium 3.2 mmol/L (3.5-5.1); Sodium 139 mmol/L (136-145)
[2018-04-02 09:47] LABS: #Eosinphils 0.2 thou/uL (0.0-0.7); #Lymphocytes 0.8 thou/uL (1.20-3.40); #Monocytes 0.5 thou/uL (0.11-0.59); #Neutrophils 3.3 thou/uL (1.40-6.50); %Basophils 0.6 % (0.0-1.0); %Eosinophils 4.7 % (0.0-10.0); %Neutrophils 66.8 % (42.0-75.0); Hemoglobin 7.8 g/dL (14.0-18.0); Mean Corpuscular HGB CONC 32.8 g/dL (32.0-36.0); Mean Corpuscular Hemoglobin 28.5 pg (27.0-31.0); Mean Corpuscular Volume 86.9 fL (78.0-98.0); Mean Platelet Volume 6.7 fL (7.4-10.4); Platelet Count 192 thou/uL (130-400); RBC Distribution Width 14.2 % (11.5-14.5); Red Blood Cell (RBC) Count 2.73 mill/uL (4.70-6.10); White Blood Cell (WBC) Count 4.9 thou/uL (4.8-10.8)
[2018-04-02] MEDS: Heparin 5,000 UNITS/ML VIAL SC SCH ×3 (10:29→20:40)
[2018-04-02] MEDS: Aspirin 81 mg Enteric Coated Tablet PO SCH (13:26)
[2018-04-02] MEDS: Carvedilol 25 MG TAB PO SCH ×2 (13:30→20:34)
[2018-04-02] MEDS ORDERED: Sodium Chloride 0.9% 0 ML ONE (15:20)
[2018-04-02] MEDS ORDERED: Fentanyl 100 MCG/2 ML VIAL ONE ×2 (15:22→15:47)
[2018-04-02] MEDS ORDERED: Midazolam HCl 2 mg/2 ml Vial ONE (15:47)
[2018-04-02] MEDS ORDERED: Bupivacaine PF 0.5% 30 ML VIAL ONE (15:49)
[2018-04-02] MEDS ORDERED: Promethazine HCl 25 MG/ML VIAL IM PRN (17:42)
[2018-04-02] MEDS ORDERED: Ondansetron HCl/PF 4 MG/2 ML Vial IVP PRN (17:42)
[2018-04-02] MEDS ORDERED: Promethazine HCl 25 MG/ML VIAL SLOW IVP PRN (17:42)
--- NOTE | 2018-04-02 18:27 | RAD ---
RIGHT FOOT THREE VIEWS: 04/02/18 HISTORY: Status post right great toe amputation. COMPARISON: A 03/31/18 exam. There has been amputation of the great toe. There is extensive vascular calcifications noted. There i s some arthritic changes of the ankle and foot region. No other acute findings seen. IMPRESSION: 1. Postop changes related to amputation of the great toe. 2. Atherosclerosis. POS: [facility]
[2018-04-02] MEDS: Isosorbide Dinitrate 20 MG TAB PO SCH (18:44)
[2018-04-02] MEDS: Amiodarone 200 MG TAB PO SCH (18:44)
[2018-04-02] MEDS: glipiZIDE 10 MG TAB PO SCH (18:46)
[2018-04-02] MEDS: Atorvastatin Calcium 40 MG TAB PO SCH (20:34)
[2018-04-02] MEDS: ALPRAZolam 1 MG TAB PO SCH (20:35)
[2018-04-02] MEDS: metroNIDAZOLE 500 MG TAB PO SCH (20:35)
--- NOTE | 2018-04-03 03:22 | OP ---
DATE OF PROCEDURE: 04/02/2018 URGENT CARE PHYSICIAN ASSISTANT: None. PREOPERATIVE DIAGNOSIS: Osteomyelitis, right hallux. POSTOPERATIVE DIAGNOSIS: Osteomyelitis, right hallux. PROCEDURE PERFORMED: Amputation of right hallux. ANESTHESIA: General. ESTIMATED BLOOD LOSS: Less than 5 mL. INJECTABLES: 20 mL of 0.5% Marcaine plain. HEMOSTASIS: With direct pressure and electrocautery. MATERIALS: None. COMPLICATIONS: None. SPECIMENS: Right hallux. DESCRIPTION OF PROCEDURE: After obtaining informed consent, the patient was brought back to the operating room, placed on the table in supine fashion. After adequate anesthesia was obtained, the patient's right lower extremity was prepped and draped in aseptic manner. No tourniquet was used and attention was directed to the patient's right foot at this time. A fishmouth incision was done over at the base of the proximal phalanx of the hallux with a #10 blade down to the epidermal, dermal layer, subcutaneous tissue, tendon, capsule to the layer of bone. This was done circumferentially around the toe. After this, the toe was then disarticulated at the first metatarsophalangeal joint, which was then sent to Pathology for further examination. The wound was then irrigated with copious amounts of normal saline and a layered closure was then performed at this time. The wound was then dressed with Xeroform, 4x4s, Kerlix, and an Jose bandage. The patient tolerated the procedure and anesthesia well with vital signs remained stable throughout. The patient was transported from OR to PACU with vital signs remaining stable and vascular status intact in operative extremity. Job ID: [id number]
[2018-04-03 06:21] LABS: #Basophils 0.1 thou/uL (0.0-0.2); #Eosinphils 0.3 thou/uL (0.0-0.7); #Lymphocytes 1.1 thou/uL (1.20-3.40); #Monocytes 0.8 thou/uL (0.11-0.59); #Neutrophils 3.8 thou/uL (1.40-6.50); %Basophils 1.1 % (0.0-1.0); %Eosinophils 4.3 % (0.0-10.0); %Lymphocytes 17.7 % (21.0-51.0); %Monocytes 13.4 % (0.0-10.0); %Neutrophils 63.6 % (42.0-75.0); Hemoglobin 7.8 g/dL (14.0-18.0); Mean Corpuscular HGB CONC 32.3 g/dL (32.0-36.0); Mean Corpuscular Hemoglobin 28.4 pg (27.0-31.0); Mean Corpuscular Volume 88.1 fL (78.0-98.0); Mean Platelet Volume 6.6 fL (7.4-10.4); Platelet Count 181 thou/uL (130-400); RBC Distribution Width 14.1 % (11.5-14.5); Red Blood Cell (RBC) Count 2.75 mill/uL (4.70-6.10)
[2018-04-03 06:37] LABS: Anion Gap 10 mmol/L (10-20); BUN (Urea Nitrogen) 27 mg/dL (8.4-25.7); Calc. Creatinine Clearance 30 mL/min (70-130); Calcium 8.3 mg/dL (7.8-10.44); Carbon Dioxide 33 mmol/L (23-31); Chloride 101 mmol/L (98-107); Estimated GFR-MDRD 20; Glucose 97 mg/dL (80-115); Potassium 3.8 mmol/L (3.5-5.1); Sodium 140 mmol/L (136-145)
--- NOTE | 2018-04-03 06:40 | PDOC.FM ---
- Subjective Subjective: NAEO. Patient did not require any pain medicine overnight. Rates pain as a 7/10 this morning. Denies any N/V or fever/chills. Says he is ok going home this weekend but will not have a ride until tomorrow morning. Has been getting up and moving around since surgery. - Objective MAR Reviewed: Yes Vital Signs & Weight: Vital Signs (12 hours) Temp Pulse Resp BP Pulse Ox 04/03/18 05:38 98.2 F 59 L 20 140/70 98 04/03/18 00:00 98.2 F 61 119/63 91 L 04/02/18 20:00 97.7 F 63 20 116/58 L 94 L Weight Admit Weight 86.183 kg Weight 86.183 kg I&O: 04/01/18 04/02/18 04/03/18 06:59 06:59 06:59 Intake Total 800 Output Total 3000 Balance -2200 Result Diagrams: 04/03/18 05:58 04/03/18 05:58 Phys Exam - Physical Examination Constitutional: NAD HEENT: moist MMs Neck: supple, full ROM Respiratory: no wheezing, no rales, no rhonchi, clear to auscultation bilateral Cardiovascular: RRR, no significant murmur Gastrointestinal: positive bowel sounds Musculoskeletal: edema present (slight edema in RLE but improved from yesterday) Neurological: non-focal, moves all 4 limbs Psychiatric: normal affect, A&O x 3 Skin: no rash, normal turgor Deviation from normal: slightly improved erythem and edema in RLE. R foot dressed and bandaged -: Dressing was clean, dry and intact. Dx/Plan (1) CAD (coronary artery disease) Code(s): I25.10 - ATHSCL HEART DISEASE OF [place] CORONARY ARTERY W/O ANG PCTRS Status: Acute (2) Diabetes mellitus type 2 in nonobese Code(s): E11.9 - TYPE 2 DIABETES MELLITUS WITHOUT COMPLICATIONS Status: Acute (3) ESRD on dialysis Code(s): N18.6 - END STAGE RENAL DISEASE; Z99.2 - DEPENDENCE ON RENAL DIALYSIS Status: Acute (4) HTN (hypertension) Code(s): I10 - ESSENTIAL (PRIMARY) HYPERTENSION Status: Acute (5) Osteomyelitis of toe of right foot Code(s): M86.9 - OSTEOMYELITIS, UNSPECIFIED Status: Acute (6) Parkinson disease Code(s): G20 - PARKINSON'S DISEASE Status: Acute - Plan Plan: This is a 62 yo male with a pmh significant for CAD s/p 4v cabg, DM2, & ESRD on HD who was instructed by his oxygen therapy teacher to go to the hospital after being diagnosed with osteomyelitis in his right great toe on x-ray. Osteomyelitis - Confirmed on x-ray. - s/p R toe amputation yesterday. - Will continue on PO flagyl for at least 10 days but will defer to podiatry as to whether or not patient needs an extended antibiotic course based on margins obtained in surgery. - Will continue PO tramadol and tylenol for pain control. Patient denies any tylenol allergy upon questioning. 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 Alejo is on board, appreciate recs. - Patient was dialyzed on 04/01 & yesterday. - Will defer to Dr. Alejo for next HD session. Normocytic anemia - Hgb stable at 7.8. Patient is s/p 1 unit of PRBCs in HD on 04/01. - Will continue EPO per nephro recs. - Will continue to monitor w/ QD CBCs. Hypokalemia - Resolved. Will have nephro replace in HD PRN. DM2 - Aware, will continue home meds. - ACHS accuchecks, SSI HTN -Continue home meds CAD -Continue home meds CHF -Continue home meds Parkinsons -Continue home meds Anxiety -Continue home meds Code: Full DVT Prophylaxis: heparin Abx: Flagyl IVFs: none Disposition: Likely d/c home tomorrow morning on PO antibiotics. Addendum - Attending - Attending Attestation Date/Time: 04/03/18 0619 I personally evaluated the patient and discussed the management with Dr. Hill I agree with the History, Examination, Assessment and Plan documented above with any addition or exceptions noted below- Patient denies complaints except pain over surgical site. Afebrile VSS. A/P: 1) Osteomyelitis of great toe s/p amputation- on po abx. Plan to d/c home in AM. 2) DM- stable; continue current meds. 3) ESRD on HD- continue HD.
[2018-04-03] MEDS: Furosemide 80 MG TAB PO SCH (08:30)
[2018-04-03] MEDS: Aspirin 81 mg Enteric Coated Tablet PO SCH (08:30)
[2018-04-03] MEDS: Carvedilol 25 MG TAB PO SCH ×2 (08:30→20:08)
[2018-04-03] MEDS: Amiodarone 200 MG TAB PO SCH (08:30)
[2018-04-03] MEDS: Isosorbide Dinitrate 20 MG TAB PO SCH (08:30)
[2018-04-03] MEDS: Heparin 5,000 UNITS/ML VIAL SC SCH ×3 (08:30→20:09)
[2018-04-03] MEDS: metroNIDAZOLE 500 MG TAB PO SCH ×3 (08:31→20:08)
[2018-04-03] MEDS ORDERED: glipiZIDE 10 MG TAB PO SCH (09:12)
[2018-04-03] MEDS ORDERED: glipiZIDE 5 MG TAB PO SCH (10:00)
[2018-04-03] MEDS: Morphine 4 MG/ML VIAL SLOW IVP PRN ×2 (14:28→20:04)
--- NOTE | 2018-04-03 17:22 | PRG ---
DATE OF SERVICE: 04/03/2018 RENAL MEDICINE SUBJECTIVE: Mr. Cosme is a 62-year-old white male with known history of ESRD - currently on maintenance hemodialysis. He underwent hemodialysis last Thursday. He is doing better. He denies any chest pain or shortness of breath. In the interim, he had an amputation of his right hallux due to osteomyelitis. The patient denies any new complaints. The only thing he mentioned is a slight postop pain. OBJECTIVE: VITAL SIGNS: Blood pressure is 162/69, heart rate 58, respiratory rate 20, temperature 97.4, and pulse ox 98%. GENERAL: Noted to be awake, alert, and comfortable, not in distress. SKIN: Adequate turgor. HEENT: He has a slightly pale conjunctivae. Anicteric sclerae. NECK: No neck mass. No carotid bruits. No JVD. CHEST: No deformities. LUNGS: Clear breath sounds. No wheezing. No crackles. HEART: Normal sinus rhythm. No murmur. No gallops. No rubs. ABDOMEN: Globular, soft, and nontender. No masses. EXTREMITIES: No edema. No deformities. Right foot dressing. MEDICATIONS: Medications of April 03, 2018, were reviewed. LABORATORY DATA: Laboratories of April 02, 2018, vancomycin level was 10.1. On April 03, 2018, sodium 140, potassium 3.8, chloride 101, carbon dioxide 33, BUN 27, creatinine 3.11, glucose 97, and calcium 8.3. White count 6 and hemoglobin 7.8. ASSESSMENT AND PLAN: 1. End-stage renal disease, stable. We will continue current hemodialysis regimen 3 times a week. I will recheck if the patient can undergo dialysis prior to discharge tomorrow since he could not do dialysis later that afternoon. He could not come back on Thursday and the Dialysis Unit is closed on Thursday. 2. Osteomyelitis right toe - status post amputation of the said involved bone. 3. Anemia continuing weekly Epogen of 10,000 units subcu every week. 4. Agree with current management. Job ID: [id number]
[2018-04-03] MEDS: ALPRAZolam 1 MG TAB PO SCH (20:07)
[2018-04-03] MEDS: Atorvastatin Calcium 40 MG TAB PO SCH (20:08)
--- NOTE | 2018-04-03 20:43 | PRG ---
DATE OF SERVICE: SUBJECTIVE: The patient was seen this morning. The patient resting comfortably in bed. The patient having some pain to the foot. He is postop day #1, right hallux amputation. The patient is reported to have some anemia. OBJECTIVE: The patient's bandages are dry, clean and intact. I did put tape surrounding the Jose bandage to help keep it secure. The patient has postoperative boots for discharge. ASSESSMENT AND PLAN: 1. From Podiatry standpoint, he may be discharged. He will be discharged as per Dr. Eckert. 2. The patient was given a prescription for morphine for home pain control due to his allergies. 3. The patient was instructed to follow up this coming Thursday with Dr. Brown in the office. Job ID: [id number]
[2018-04-04] MEDS: Morphine 4 MG/ML VIAL SLOW IVP PRN (02:53)
--- NOTE | 2018-04-04 06:43 | PDOC.FM ---
- Subjective Subjective: NAEO. Patient reports that his pain is much better on exam this AM. Is eager to go home this morning. Has no complaints. - Objective MAR Reviewed: Yes Vital Signs & Weight: Vital Signs (12 hours) Temp Pulse Resp BP Pulse Ox 04/03/18 20:00 98.2 F 68 18 169/75 H 95 Weight Admit Weight 86.183 kg Weight 86.183 kg I&O: 04/02/18 04/03/18 04/04/18 06:59 06:59 06:59 Intake Total 800 760 Output Total 3000 Balance -2200 760 Result Diagrams: 04/03/18 05:58 04/03/18 05:58 Phys Exam - Physical Examination Constitutional: NAD HEENT: moist MMs Neck: supple, full ROM Respiratory: no wheezing, no rales, no rhonchi, clear to auscultation bilateral Cardiovascular: RRR, no significant murmur right foot bandaged with nilay wrap covering dressing dressing clean, dry, and intact Neurological: non-focal, moves all 4 limbs Psychiatric: normal affect, A&O x 3 Skin: no rash, normal turgor Dx/Plan (1) Osteomyelitis of toe of right foot Code(s): M86.9 - OSTEOMYELITIS, UNSPECIFIED Status: Acute (2) CAD (coronary artery disease) Code(s): I25.10 - ATHSCL HEART DISEASE OF [place] CORONARY ARTERY W/O ANG PCTRS Status: Acute (3) Diabetes mellitus type 2 in nonobese Code(s): E11.9 - TYPE 2 DIABETES MELLITUS WITHOUT COMPLICATIONS Status: Acute (4) ESRD on dialysis Code(s): N18.6 - END STAGE RENAL DISEASE; Z99.2 - DEPENDENCE ON RENAL DIALYSIS Status: Acute (5) HTN (hypertension) Code(s): I10 - ESSENTIAL (PRIMARY) HYPERTENSION Status: Acute (6) Parkinson disease Code(s): G20 - PARKINSON'S DISEASE Status: Acute - Plan Plan: This is a 62 yo male with a pmh significant for CAD s/p 4v cabg, DM2, & ESRD on HD who was instructed by his principal java developer to go to the hospital after being diagnosed with osteomyelitis in his right great toe on x-ray. Osteomyelitis - Confirmed on x-ray. - Post-op day #2 s/p R toe amputation.. - Patient has been cleared by podiatry for d/c so will send home on PO flagyl x 9 days to complete a 10 days course. Patient was given PO morphine by podiatry for pain control at home. 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 Alejo is on board, appreciate recs. Normocytic anemia - Hgb has been stable at 7.8. Patient is s/p 1 unit of PRBCs in HD on 04/01. - Will continue EPO per nephro recs. DM2 - Aware, will continue home meds but will switch the patient's glipizide to AM instead of PM to prevent hypoglycemia in the AM and while sleeping. - ACHS accuchecks, SSI HTN -Continue home meds CAD -Continue home meds CHF -Continue home meds Parkinsons -Continue home meds Anxiety -Continue home meds Hypokalemia - Resolved. Will have nephro replace in HD PRN. Code: Full DVT Prophylaxis: heparin Abx: Flagyl IVFs: none Disposition: D/c home this morning on PO antibiotics. Addendum - Attending - Attending Attestation Date/Time: 04/04/18 3845 I personally evaluated the patient and discussed the management with Dr. Hill I agree with the History, Examination, Assessment and Plan documented above with any addition or exceptions noted below- Patient without complaints. Pain controlled. Ready to go home. Afebrile VSS. A/P: 1) Osteomyelitis s/p great toe amputation- d/c home today and follow-up with podiatry. 2) DM- stable. 3) ESRD- continue HD as outpatient.
[2018-04-04 07:13] VITALS: BP 144/71; TEMP 97.8
[2018-04-04] MEDS: Furosemide 80 MG TAB PO SCH (07:15)
[2018-04-04] MEDS: Aspirin 81 mg Enteric Coated Tablet PO SCH (07:15)
[2018-04-04] MEDS: Isosorbide Dinitrate 20 MG TAB PO SCH (07:15)
[2018-04-04] MEDS: Amiodarone 200 MG TAB PO SCH (07:15)
[2018-04-04] MEDS: metroNIDAZOLE 500 MG TAB PO SCH (07:15)
[2018-04-04] MEDS: Carvedilol 25 MG TAB PO SCH (07:15)
[2018-04-04] MEDS: Heparin 5,000 UNITS/ML VIAL SC SCH (07:16)
[2018-04-04] MEDS ORDERED: glipiZIDE 10 MG TAB PO SCH (08:00)
--- NOTE | 2018-04-04 14:36 | DIS ---
DATE OF ADMISSION: 03/31/2018 DATE OF DISCHARGE: 04/04/2018 RESIDENT: Lupe Hill MD ADMITTING ATTENDING: Dr. Bart Eckert. DISCHARGE ATTENDING: Dr. Nishi Dumont. CONSULTS: 1. Nephrology, Dr. Misael Alejo. 2. CV surgery, Dr. Brown. 3. Podiatry, Dr. Devin Brown. PROCEDURES: 1. Right toe x-ray, which was significant for lytic changes involving the great toe distal phalanx compatible with osteomyelitis in the setting of infection. 2. Amputation of the right hallux on 04/02/2018. 3. Right toe x-ray on 04/02/2018 significant for postoperative changes related to amputation of the great toe and atherosclerosis. PRIMARY DIAGNOSIS: Osteomyelitis of the great right toe. SECONDARY DIAGNOSES: 1. End stage renal disease, on hemodialysis. 2. Type 2 diabetes mellitus. 3. History of coronary artery disease, status post 4-vessel coronary artery bypass grafting. 4. Hypertension. 5. Parkinson's disease. 6. Anxiety. 7. Congestive heart failure, unknown type. 8. Normocytic anemia secondary to end stage renal disease. DISCHARGE MEDICATIONS: 1. Amiodarone 200 mg p.o. daily. 2. Atorvastatin 80 mg p.o. daily. 3. Xanax 1 mg p.o. daily. 4. Coreg 25 mg p.o. b.i.d. 5. Isosorbide dinitrate 30 mg p.o. daily. 6. Lasix 80 mg p.o. every 2 days. 7. Aspirin 81 mg daily. 8. EPO 10,000 units per mL subcu every 7 days. 9. Flagyl 500 mg p.o. t.i.d. for 9 days. 10. Glipizide 10 mg p.o. q.a.m. with meals. DISCONTINUED MEDICATION: Glipizide 10 mg p.o. q.p.m. with meals. HOSPITAL COURSE: The patient is a 62-year-old gentleman with a past medical history significant for coronary artery disease, status post 4-vessel CABG, type 2 diabetes, and end stage renal disease on hemodialysis, who presented to the Emergency Department by recommendation of his counterintelligence analyst for osteomyelitis of his right great toe. Per the patient, he has been seeing his counterintelligence analyst Dr. Devin Brown for outpatient management of this toe infection; however, per Dr. Brown , the patient failed outpatient treatment and it was recommended that he report to the emergency room for admission for IV antibiotics and possible amputation of his toe. In the Emergency Department, a right toe x-ray was obtained which was significant for lytic changes consistent with osteomyelitis in the setting of infection. Routine lab work was also obtained, which was significant for an elevated BUN and creatinine consistent with the patient's end stage renal disease. The patient was therefore given 1 gram of IV Ancef and vancomycin and admitted to the medical floor for close observation overnight. The following morning, the patient's counterintelligence analyst was consulted and he recommended an evaluation by CV Surgery prior to amputation of the right great toe. CV Surgery came and evaluated the patient later that day and determined there was no need for any vascular intervention at this point. Therefore, after evaluation by Dr. Brown later that day, it was recommended that the patient undergo amputation of his right great toe the following morning on 04/02/2018. The patient therefore underwent amputation and tolerated the procedure well with no complications. Postoperatively, the patient was transitioned to p.o. antibiotics with 500 of Flagyl t.i.d. per the recommendations of Infectious Disease physician, Dr. Marcano. The patient was continued on this regimen and monitored closely over the course of the weekend until he was cleared by Podiatry for discharge home with close follow-up on 04/07/[address] Brown. Regarding the patient's end stage renal disease, the patient's disk sharpener Dr. Misael Alejo was consulted in the Emergency Department as the patient reported that he had missed hemodialysis on the date of presentation as he was instructed by his counterintelligence analyst to go immediately to the Emergency Department. The patient was therefore dialyzed daily for the duration of his hospital stay and was actually given 1 unit of packed RBCs preoperatively as his hemoglobin was noted to be low at 7.2. His electrolytes were replaced p.r.n. in hemodialysis and, by the date of discharge, the patient was cleared for discharge home in stable condition with instructions to continue with his routine Thursday, Thursday, and Thursday hemodialysis schedule. DISPOSITION: Stable. DISCHARGE INSTRUCTIONS: 1. Location: Home. 2. Diet: Heart healthy diet, low-salt diet, diabetic diet, renal diet, high- protein. 3. Activity: As tolerated. No restrictions. 4. Followup: The patient was instructed to follow up with counterintelligence analyst Dr. Devin Brown on 04/07/2018. He was also instructed to follow up with his primary care provider within 1 week of discharge and Dr. Misael Alejo his disk sharpener for regularly scheduled appointments. Job ID: [id number] MTDD
--- NOTE | 2018-04-05 00:37 | PDOC.EVN ---
Event Note - Event Note Event Note: Pt returned to the hospital at 2300 reporting that his oral morphine prescription was written wrong and that his metronidazole did not transfer to the pharmacy. At this point the pharmacy was closed, as was the prescriber's office. The pt reported that he did not have a ride or a phone number to call the hospital. I provided pt with Tramadol 50mg 1-2 PO q6hr as needed for pain, disp. 30 as well as his metronidazole script of 500mg 1 po TID disp 27. I instructed pt to contact podiatry in the morning to attempt to get a new prescription.
== END 2018-04-04 08:43 | disposition home or self-care (01) | DRG 617 ==
LOC: ERS 17:32 → T4-A 18:55
PROVIDERS: ADMIT Student in an Organized Health Care Education/Training Program; ATTEND Student in an Organized Health Care Education/Training Program
PROC: 30233N1 Transfusion of Nonautologous Red Blood Cells into Peripheral Vein, Percutaneous Approach (ICD-10-PCS; 2018-04-01)
PROC: 5A1D70Z Performance of Urinary Filtration, Intermittent, Less than 6 Hours Per Day (ICD-10-PCS; 2018-04-01)
PROC: 0Y6M0Z9 Detachment at Right Foot, Partial 1st Ray, Open Approach (ICD-10-PCS; principal; 2018-04-02)
PROC: 5A1D70Z Performance of Urinary Filtration, Intermittent, Less than 6 Hours Per Day (ICD-10-PCS; 2018-04-02)
PROC: 5A1D70Z Performance of Urinary Filtration, Intermittent, Less than 6 Hours Per Day (ICD-10-PCS; 2018-04-03)
DX: E11.69 Type 2 diabetes mellitus with other specified complication (principal); M86.8X7 Other osteomyelitis, ankle and foot; I13.2 Hypertensive heart and chronic kidney disease with heart failure and with stage 5 chronic kidney disease, or end stage renal disease; N18.6 End stage renal disease; E11.22 Type 2 diabetes mellitus with diabetic chronic kidney disease; Z99.2 Dependence on renal dialysis; G20 Parkinson's disease; F41.9 Anxiety disorder, unspecified; I25.10 Atherosclerotic heart disease of native coronary artery without angina pectoris; I50.9 Heart failure, unspecified; D64.9 Anemia, unspecified; E87.6 Hypokalemia; E11.21 Type 2 diabetes mellitus with diabetic nephropathy; E11.51 Type 2 diabetes mellitus with diabetic peripheral angiopathy without gangrene; Z79.82 Long term (current) use of aspirin; Z88.5 Allergy status to narcotic agent; Z95.0 Presence of cardiac pacemaker; Z89.422 Acquired absence of other left toe(s); Z95.1 Presence of aortocoronary bypass graft
CPT/HCPCS: 36415; 36416; 36430; 80048; 80053; 80202; 83605; 83880; 85025; 86850; 86900; 86901; 87040; 96365; 96375; G8978-GP-CI; G8979-GP-CI; G8980-GP-CI; G8987-GO-CI; G8988-GO-CI; G8989-GO-CI; J0690; J1644; J2250; J2270; J2704; J3010; J3370; J3490; J7050; P9016; Q4081; S0020

== ENCOUNTER 2018-07-28 09:33 | Day surgery (SDC) | payer MEDICARE, BC ==
[2018-07-27 16:03] VITALS: BMI 30.1
[2018-07-28] MEDS ORDERED: Albuterol Sulfate 1.25 MG/3 ML NEB ONE ×2 (10:50→10:56)
[2018-07-28] MEDS ORDERED: Lidocaine Viscous Sol 2% 15 ml UD Cup ONE (10:51)
--- NOTE | 2018-07-28 15:35 | OP ---
DATE OF PROCEDURE: 07/28/2018 PROCEDURES PERFORMED: 1. Esophagogastroduodenoscopy with biopsy. 2. Colonoscopy with snare polypectomy and argon plasma coagulation. DESCRIPTION OF PROCEDURE: Written consents were obtained prior to procedure. After adequate sedation, a forward-viewing endoscope was advanced down the stomach under direct vision to the third portion of duodenum. The duodenum appeared normal. The pylorus was patent. Mild antral erythema in linear fashion was noted. The body, fundus, and cardia appeared normal. Retroflexion did not show any abnormality. Biopsies were obtained from the gastric antrum. The GE junction was located at 40 cm. The esophagus appeared normal. The patient was then repositioned for colonoscopy. Rectal exam performed and it was normal. The endoscope was advanced to the cecum. The quality of the bowel prep was good. Next to the appendiceal orifice, a small vascular ectasia measuring approximately 3 to 4 mm was noted. There was no stigmata of bleeding. Using plasma argon at flow rate of 0.5 L/minute and 15 jimenez, the vascular ectasia was ablated. In the ascending colon, a small 3 mm sessile polyp was noted. This polyp was removed with cold snare and not retrieved. The ascending, hepatic flexure, transverse colon, splenic flexure, descending colon, and rectosigmoid colon otherwise appeared normal. Retroflexion was normal. The patient tolerated the procedure well. ASSESSMENT: 1. Mild antral gastritis, no stigmata of bleeding. 2. Small cecal vascular ectasia, status post APC ablation. 3. Small ascending colon polyp removed. 4. No obvious source of enteric bleeding on EGD and colonoscopy. RECOMMENDATIONS: 1. Await antral biopsy results. 2. Pantoprazole 40 mg p.o. q.a.m. x4 weeks for antral gastritis. 3. Proceed with small-bowel capsule evaluation of the small bowel. Job ID: [id number]
[2018-07-28] MEDS ORDERED: Lidocaine 1% PF 5 ML VIAL ONE (16:23)
[2018-07-28] MEDS ORDERED: PROPOFOL 200 MG/20 ML VIAL ONE (16:23)
== END 2018-07-28 13:00 | disposition home or self-care (01) ==
LOC: SDC 09:33
PROVIDERS: ATTEND Internal Medicine Gastroenterology
PROC: 0DBK8ZX Excision of Ascending Colon, Via Natural or Artificial Opening Endoscopic, Diagnostic (ICD-10-PCS; principal; 2018-07-28)
PROC: 0D5H8ZZ Destruction of Cecum, Via Natural or Artificial Opening Endoscopic (ICD-10-PCS; 2018-07-28)
PROC: 0DB78ZX Excision of Stomach, Pylorus, Via Natural or Artificial Opening Endoscopic, Diagnostic (ICD-10-PCS; 2018-07-28)
DX: D64.9 Anemia, unspecified (principal); R19.5 Other fecal abnormalities; K63.5 Polyp of colon; K55.20 Angiodysplasia of colon without hemorrhage; K29.70 Gastritis, unspecified, without bleeding; K21.9 Gastro-esophageal reflux disease without esophagitis; F41.9 Anxiety disorder, unspecified; J45.909 Unspecified asthma, uncomplicated; I13.0 Hypertensive heart and chronic kidney disease with heart failure and stage 1 through stage 4 chronic kidney disease, or unspecified chronic kidney disease; E11.22 Type 2 diabetes mellitus with diabetic chronic kidney disease; N18.9 Chronic kidney disease, unspecified; I50.9 Heart failure, unspecified; I25.2 Old myocardial infarction; E78.00 Pure hypercholesterolemia, unspecified; G47.30 Sleep apnea, unspecified; Z86.010 Personal history of colon polyps; Z79.84 Long term (current) use of oral hypoglycemic drugs; Z79.82 Long term (current) use of aspirin; Z79.899 Other long term (current) drug therapy; Z88.5 Allergy status to narcotic agent; Z88.8 Allergy status to other drugs, medicaments and biological substances; Z95.1 Presence of aortocoronary bypass graft; Z95.810 Presence of automatic (implantable) cardiac defibrillator; Z99.2 Dependence on renal dialysis; Z91.013 Allergy to seafood
CPT/HCPCS: 88305; 88312; 93005; 93010; J2001; J2704

== ENCOUNTER 2018-08-10 16:56 | Day surgery (SDC) | payer MEDICARE, BC ==
[2018-08-10 22:14] VITALS: BP 165/72; TEMP 97.7
== END 2018-08-10 22:10 | disposition home or self-care (01) ==
LOC: ONC/OP 16:56 → ONC 17:03 → ONC/OP 22:10
PROVIDERS: ATTEND Internal Medicine Nephrology
PROC: 30233N1 Transfusion of Nonautologous Red Blood Cells into Peripheral Vein, Percutaneous Approach (ICD-10-PCS; principal; 2018-08-10)
DX: N18.9 Chronic kidney disease, unspecified (principal); D63.1 Anemia in chronic kidney disease; Z88.5 Allergy status to narcotic agent; Z88.8 Allergy status to other drugs, medicaments and biological substances
CPT/HCPCS: 36415; 36430; 86850; 86900; 86901; P9016